=== PATIENT | female | born 1950 | race Two or more races ===

== ENCOUNTER 2019-02-27 08:22 | Inpatient (IN) | payer OTHER ==
[~2019-02-27] VITALS: Ht 154.9 cm; Wt 83.9 kg
[2019-03-06] MEDS ORDERED: VOLTAREN100 GM TOP (09:28)
[2019-03-06] MEDS ORDERED: OMEPRAZOLE20 M1 PO (09:29)
[2019-03-06] MEDS ORDERED: CRESTOR40 MG PO (09:29)
[2019-03-06] MEDS ORDERED: NEURONTIN300 MG PO (09:29)
[2019-03-15] MEDS ORDERED: XARELTO10 MG PO (07:56)
[2019-03-15] MEDS ORDERED: INTEGRA PLUS C1 EACH PO (07:56)
[2019-03-15] MEDS ORDERED: OXYC1TAB9 PO (07:56)
== END 2019-03-15 13:33 | DRG 470 ==
LOC: SURG 03-06 09:00 → O/R 03-13 06:31 → SURH 03-13 06:31 → SURG 03-13 09:00 → SURH 03-13 16:57
PROVIDERS: ADMIT Orthopaedic Surgery Sports Medicine
PROC: 0SRC0J9 Replacement of Right Knee Joint with Synthetic Substitute, Cemented, Open Approach (ICD-10-PCS; principal; 2019-03-13 14:30)
DX: M17.11 Unilateral primary osteoarthritis, right knee (principal); E78.49 Other hyperlipidemia; E78.00 Pure hypercholesterolemia, unspecified; Z86.718 Personal history of other venous thrombosis and embolism; Z79.01 Long term (current) use of anticoagulants